=== PATIENT | female | born 1970 | race Caucasian/White ===

== ENCOUNTER 2018-01-15 06:22 | Day surgery (SDC) | payer OTHER ==
[2018-01-11 15:05] LABS: BASOPHILS % (AUTO) 0.4 % (0.0-5.0); EOSINOPHILS % (AUTO) 3.1 % (0.0-8.0); HEMATOCRIT 37.1 % (36-48); LYMPHOCYTES % (AUTO) 35.4 % (21.0-51.0); MEAN CORPUSCULAR HEMOGLOBIN 29.4 pg (27.0-33.0); MEAN CORPUSCULAR HGB CONC 33.3 g/dL (32.0-36.0); MEAN CORPUSCULAR VOLUME 88.4 fL (79-99); MONOCYTES % (AUTO) 9.1 % (3.0-13.0); PLATELET COUNT (AUTO) 230 K/uL (130-400); RED CELL DISTRIBUTION WIDTH 13.7 % (11.0-15.5)
[2018-01-11 15:11] VITALS: BP 120/60
[2018-01-11 15:15] LABS: CREATININE 0.4 mg/dL (0.5-1.5)
[2018-01-15] VITALS (14 sets, daily range): BP systolic 108–143; BP diastolic 53–80
[~2018-01-15] VITALS: Ht 163.8 cm; Wt 125.1 kg
[2018-01-15] MEDS ORDERED: LACTATED RINGERS 1000ML 1,000 ML IV ONE (07:15)
[2018-01-15] MEDS: CEFAZOLIN SODIUM 1 GM VIAL ONE ×2 (07:21→09:01)
[2018-01-15] MEDS ORDERED: EPINEPHRINE 1 MG/ML 30ML VIAL IJ ONE (07:35)
[2018-01-15] MEDS ORDERED: CEFAZOLIN 3GM /D5W 100ML 100 ML IV PRN (08:00)
[2018-01-15] MEDS ORDERED: LIDOCAINE PF 2% 5ML ABBOJECT ONE (08:13)
[2018-01-15] MEDS ORDERED: ROCURONIUM 10MG/1ML SYR 10 MG/ML ML ONE (08:13)
[2018-01-15] MEDS ORDERED: PROPOFOL 10 MG/ML 20ML VIAL IV ONE (08:13)
[2018-01-15] MEDS ORDERED: FENTANYL CITRATE PF 50 MCG/1 ML 2ML VIAL ONE ×2 (08:13→10:40)
[2018-01-15] MEDS ORDERED: DEXAMETHASONE SOD PHOSPHATE 4 MG/ML 1ML VIAL ONE (08:27)
[2018-01-15] MEDS ORDERED: ROPIVACAINE 0.5% 5MG/ML 30ML IJ ONE (08:28)
[2018-01-15] MEDS ORDERED: KETOROLAC TROMETHAMINE 30MG/ML ONE (10:51)
[2018-01-15] MEDS ORDERED: NAPR-1192 PO (11:03)
[2018-01-15] MEDS ORDERED: CEPH500B PO (11:03)
[2018-01-15] MEDS ORDERED: HYDR-4457 PO (11:03)
[2018-01-15] MEDS ORDERED: MEPERIDINE-PF 25 MG/ML SYG ONE (11:20)
[2018-01-15] MEDS ORDERED: IPRATROPIUM/ALBUTEROL SULFATE 3 ML SOLUTION IH ONE (11:39)
[2018-01-15] MEDS ORDERED: ONDANSETRON HCL 4 MG/2 ML VIAL ONE (11:52)
== END 2018-01-15 13:37 | disposition home or self-care (01) ==
LOC: DAH 06:22
PROVIDERS: ATTEND Orthopaedic Surgery
DX: M75.82 Other shoulder lesions, left shoulder (principal); M75.42 Impingement syndrome of left shoulder; Z90.49 Acquired absence of other specified parts of digestive tract; Z98.890 Other specified postprocedural states; Z68.42 Body mass index [BMI] 45.0-49.9, adult; Z88.8 Allergy status to other drugs, medicaments and biological substances; E66.9 Obesity, unspecified
CPT/HCPCS: 29824; 29826; 36415; 80048; 84702; 85025; 94640; A4600; A4649 ×3; A4930 ×2; A6204; A6207; J0171; J0690; J1100; J2001; J2175; J2405; J2704; J2795; J3010 ×2; J7030; J7120; J1885